=== PATIENT | male | born 1960 ===

== ENCOUNTER 2022-08-26 11:49 | Day surgery (SDC) | payer OTHER ==
[2022-08-25 15:45] VITALS: BMI 27.4
[~2022-08-26 11:49] MED LIST: Fluorouracil 100 MG, EPINEPHrine 0.3 MG in Ophthalmic Irrigation Solution 500 ML IRR SCH
[2022-08-26] MEDS ORDERED: Fluorouracil 100 MG, EPINEPHrine 0.3 MG in Ophthalmic Irrigation Solution 500 ML IRR SCH (12:30)
== END 2022-08-26 12:50 | disposition home or self-care (01) ==
LOC: SDC 11:49
PROVIDERS: ATTEND Ophthalmology Retina Specialist
DX: H33.22 Serous retinal detachment, left eye (principal); I10 Essential (primary) hypertension; Z53.09 Procedure and treatment not carried out because of other contraindication
CPT/HCPCS: J0171; J9190